=== PATIENT | male | born 1985 | race Hispanic/Latino ===

== ENCOUNTER 2025-03-23 16:28 | Emergency (ER) | payer OTHER ==
[~2025-03-23] VITALS: Ht 182.9 cm; Wt 134.0 kg
[2025-03-23] MEDS ORDERED: WEGOVY2.4 MG/0.7 SQ (17:45)
[2025-03-23 17:54] LABS: BASOPHILS 0.6 % (0.2-1.2); EOSINOPHILS 1.0 % (0.8-7.0); LYMPHOCYTES 33.0 % (21.8-53.1); MCH 29.7 PG (25.7-32.2); MCHC 33.5 g/dL (32.3-36.5); MCV 88.6 fL (79.0-92.2); MONOCYTES 8.6 % (5.3-12.2); NEUTROPHILS 56.7 % (34.0-67.9); RBC 5.02 M/uL (4.63-6.08)
[2025-03-23 18:13] LABS: ALT (SGPT) 42.0 U/L (14-59); AST (SGOT) 18.0 U/L (15-37); GLOMERULAR FILTRATION RATE,EST 115.0 mL/min (>60); PROTEIN, TOTAL 7.7 g/dL (6.4-8.2); UREA NITROGEN 13.0 mg/dL (7-18)
[2025-03-23] MEDS ORDERED: HYDROCODON-ACE1 EA10 PO (21:57)
[2025-03-23] MEDS ORDERED: CEPHALEXIN500 M1 PO (22:35)
[2025-03-23] MEDS ORDERED: HYDROCODONE BIT/ACETAMINOPHEN 5/325 MG 1 TAB HOME.PACK PO ONE (22:45)
[2025-03-23] MEDS ORDERED: CEPHALEXIN MONOHYDRATE 500 MG HOME.PACK PO ONE (22:45)
[2025-03-23 22:50] VITALS: BP 131/83
--- OUTSIDE RECORDS SUMMARY | 2025-03-23 22:51 | XMS ---
PreManage Notification: CARTER WILLS Security [employer] T[employer] Events No recent Security Events currently on file CRITERIA MET - [facility] - 2 Visits in 30 Days CARE PROVIDERS ANTONIO SINGER Community Health Worker 12/23/2022-Current PHONE: [phone] NIKKO Montaño [facility] Current PHONE: [phone] Roxy has no Care Guidelines for this patient. EArelis VISIT COUNT (12 MO.) [address] [place] [address] TOTAL 5 NOTE: Visits indicate total known visits. ED/UCC VISIT TRACKING (12 MO.) 03/23/2025 16:30 [facility] [place] TYPE: Emergency COMPLAINT: - BELLY BUTTON PROBLEM 03/20/2025 14:39 [employer] 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, unspecified - ABD CONCERNS 11/18/2024 08:56 [email or web address] [place] TYPE: Emergency DIAGNOSES: - Laceration without foreign body of left ring finger with damage to nail, initial encounter - LEFT RING FINGER LACERATION 09/02/2024 09:18 [facility] [place] TYPE: Emergency DIAGNOSES: - Chest pain, unspecified - CHEST PAIN DIZZY 04/17/2024 21:49 [facility] [place] TYPE: Emergency DIAGNOSES: - Acute sinusitis, unspecified - Other specified bacterial agents as the cause of diseases classified elsewhere - SINUS INFECTION INPATIENT VISIT TRACKING (12 MO.) No inpatient visits to display in this time frame [email or web address]
== END 2025-03-23 22:50 | disposition home or self-care (01) ==
LOC: ED 16:28
PROVIDERS: Emergency Medicine
DX: K42.9 Umbilical hernia without obstruction or gangrene (principal); E66.9 Obesity, unspecified; Z91.030 Bee allergy status; Z79.899 Other long term (current) drug therapy
CPT/HCPCS: 36415; 74177; 80053; 85025; 99284-25; A9270; Q9967